=== PATIENT | male | born 1955 | race Caucasian/White ===

== ENCOUNTER 2017-03-14 07:22 | Day surgery (SDC) | payer BC ==
[2017-03-12 14:19] LABS: HEMATOCRIT 41.4 % (40.0-51.0); HEMOGLOBIN 14.4 g/dL (13.6-17.8)
--- NOTE | ~2017-03-14 | OP ---
Record Of Operation [facility] [address] [place]. 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 POSTOPERATIVE DIAGNOSIS: Right base of tongue lesion with metastatic neck disease. SURGEON: Bianca Leal M.D. ANESTHESIA: General endotracheal anesthesia was utilized. FINDINGS: A 1.5 to 2 cm ulcerative and exophytic lesion in the right tongue base leading to the inferior portion the right tonsil fossa. ESTIMATED BLOOD LOSS: 5 mL. COMPLICATIONS: No complications. INDICATIONS FOR PROCEDURE: This is a 61-year-old gentleman was seen in my clinic for right level 2 cystic neck mass. Fine-needle aspiration was performed in the clinic showing metastatic squamous cell carcinoma, p16 positive. He has indications for direct laryngoscopy for identification of primary site thought to be either in tonsillar fossa at the base of tongue, but definitely in the oropharynx due to the p16 nature. He was described the risks and benefits of the procedure including blood loss, infection, risk of anesthesia, pain and bleeding postoperatively, and the lack of ability to find his primary site. He voiced understanding, signed the consent. The consent was placed on the chart at the time of the operation. DESCRIPTION OF PROCEDURE: The patient was wheeled to the OR suite, placed on the OR table in supine position. He was intubated and placed under general endotracheal anesthesia using a 6.5 regular endotracheal tube. The table was turned 90 degrees, and he was prepped and draped in standard fashion for direct laryngoscopy. Maxillary tooth guard was placed. Head was placed in a donut, I would use the Dedo-Ossoff laryngoscope. Head drape was placed as well as this was to be done. As I said, using a Dedo-Ossoff laryngoscope, I placed the scope in his oral cavity and oropharynx, suctioned out any secretions and visualized that the larynx was normal appearing, pyriform sinuses appeared normal, and very quickly identified an exophytic right tongue base lesion adjacent from his vallecula really to his inferior portion of his tonsil fossa on the right hand side. I have taken multiple cup biopsies of this. There was some bleeding, this was controlled using epinephrine-soaked cottonoids, which was subsequently removed, and he was suctioned out. These were sent for permanent, this is very clearly a squamous cell carcinoma in this area. So, at this point, procedure was complete. I evaluated the pyriform sinuses, the larynx, hypopharynx, and the tongue base lesion noted. I palpated these areas as well firm area was in the right base of tongue. So, I suctioned the pharynx, removed the tooth guard and scope, turned him 90 degrees, returned to care of the Record Of Operation [address] [address] NAME: LUDIVINA LANGE : 51 STATUS : [facility] PAT#: [id number] AGE: 61 ADM/REG DATE : 03/14/17 MR#: [id number] REPORT SERV DATE: 03/14/17 DICTATED BY: BIANCA LEAL DATE: 03/14/17 REPORT STATUS : Draft TRANSCRIBED BY: LINDY DATE: 03/14/17 anesthesiologist, subsequently awoken, and stably transferred to the recovery area MARCELINO/LINDY Bianca Leal M.D. / [id number] CC: Isacc Archuleta M.D.
[~2017-03-14 07:22] MED LIST: COQ-1010 MG PO; GINGKO BILOBA PO; LIPITOR10 PO; MOBIC7.5 PO; MULTIVIT/MIN PO; P1 PO; PLAQ200B PO; PRILO PO; PRILOSEC OTC20 MG PO; SAW PALMETTO PO; SULFAZINE500 MG PO; ZOCOR40 PO
[2017-04-10] MEDS ORDERED: PREVEGEN (13:44)
== END 2017-03-14 12:48 | disposition home or self-care (01) ==
LOC: SDC 07:22
PROVIDERS: Otolaryngology
PROC: 0CBM8ZX Excision of Pharynx, Via Natural or Artificial Opening Endoscopic, Diagnostic (ICD-10-PCS; principal; 2017-03-14 09:00)
DX: C01 Malignant neoplasm of base of tongue (principal); F17.210 Nicotine dependence, cigarettes, uncomplicated; E78.5 Hyperlipidemia, unspecified; K21.9 Gastro-esophageal reflux disease without esophagitis; M06.9 Rheumatoid arthritis, unspecified; Z98.890 Other specified postprocedural states; Z79.899 Other long term (current) drug therapy; Z79.52 Long term (current) use of systemic steroids
CPT/HCPCS: 85014; 85018; 88305; 88342; 93005; J0690; J2250; J2405; J3010

== ENCOUNTER 2017-04-12 12:01 | Observation (INO) | payer BC ==
--- NOTE | ~2017-04-12 | EGD ---
EGD REPORT [facility] [address] [address] NAME: FRANC HEATH : 51 STATUS : [facility]#: [id number] AGE: 61 ADM/REG DATE : 04/12/17 MR#: [id number] REPORT SERV DATE: 04/12/17 DICTATED BY: BRIGIDA GILBERT DATE: 04/12/17 REPORT STATUS : Draft TRANSCRIBED BY: [facility] DATE: 04/12/17 Endoscopy Center Patient Name: Franc Heath Date of : 1955 Attending MD: BRIGIDA GILBERT MD Procedure Date No Time: 04/12/2017 Procedure: Upper GI endoscopy Indications: Dysphagia, Tongue cancer Referring MD: ARA JACOBO MD, Luis Hdez, Karsten Souza Medicines: See the Anesthesia note for documentation of the administered medications Complications: No immediate complications. Procedure: Pre-Anesthesia Assessment: - ASA Grade Assessment: II - A patient with mild systemic disease. After obtaining informed consent, the endoscope was passed under direct vision. Throughout the procedure, the patient's blood pressure, pulse, and oxygen saturations were monitored continuously. The GIF [id number] was introduced through the mouth, and advanced to the second part of duodenum. The upper GI endoscopy was accomplished without difficulty. The patient tolerated the procedure well. Findings: Diffuse erythematous mucosa was found in the duodenal bulb. A small hiatus hernia was present. There were esophageal mucosal changes suspicious for short-segment Pagan's esophagus present in the lower third of the esophagus. The maximum longitudinal extent of these mucosal changes was 1 cm in length. The entire examined stomach was normal. The patient was placed in the supine position for PEG placement. The stomach was insufflated to appose gastric and abdominal coffey. A site was located in the body of the stomach with excellent transillumination for placement. The abdominal wall was marked and prepped in a sterile manner. The area was anesthetized with 0.5% lidocaine. The trocar needle was introduced through the abdominal wall and into the stomach under direct endoscopic view. A snare was introduced through the endoscope and opened in the gastric lumen. The guide wire was passed through the trocar and into the open snare. The snare was closed around the guide wire. The endoscope and snare were removed, pulling the wire out through the mouth. A skin incision was made at the site of needle insertion. The externally removable 24 Fr EndoVive Safety gastrostomy tube was lubricated. The G-tube was tied to the guide wire and pulled through the mouth and into EGD REPORT [address] [place]. [address] NAME: FRANC HEATH : 51 STATUS : [facility]#: [id number] AGE: 61 ADM/REG DATE : 04/12/17 MR#: [id number] REPORT SERV DATE: 04/12/17 DICTATED BY: BRIGIDA GILBERT DATE: 04/12/17 REPORT STATUS : Draft TRANSCRIBED BY: [facility] DATE: 04/12/17 the stomach. The trocar needle was removed, and the gastrostomy tube was pulled out from the stomach through the skin. The external bumper was attached to the gastrostomy tube, and the tube was cut to remove the guide wire. The final position of the gastrostomy tube was confirmed by relook endoscopy, and skin marking noted to be 3.5 cm at the external bumper. The final tension and compression of the abdominal wall by the PEG tube and external bumper were checked and revealed that the bumper was moderately tight and mildly deforming the skin. The feeding tube was capped, and the tube site cleaned and dressed. Impression: - Erythematous duodenopathy. - Hiatus hernia. - Esophageal mucosal changes suspicious for short-segment Pagan's esophagus. - Normal stomach. - An externally removable PEG placement was successfully completed. Recommendation: - Admit for 23 hr observation Procedure Code(s): --- Professional --- 90516, Esophagogastroduodenoscopy, flexible, transoral; with directed placement of percutaneous gastrostomy tube Diagnosis Code(s): --- Professional --- K31.89, Other diseases of stomach and duodenum K44.9, Diaphragmatic hernia without obstruction or gangrene K22.9, Disease of esophagus, unspecified R13.10, Dysphagia, unspecified CPT copyright 2013 [employer]. All rights reserved. The codes documented in this report are preliminary and upon metal trim erector review may be revised to meet current compliance requirements. Brigida Gilbert MD BRIGIDA GILBERT MD 04/12/2017 2:34 PM This report has been signed electronically. Number of Addenda: 0 Note Initiated On: 04/12/2017 1:51 PM Scope Withdrawal Time 0 hours 0 minutes 0 seconds
[~2017-04-12 12:01] MED LIST changes: +PREVEGEN
[2017-04-12 12:17] LABS: BASOPHILS 0.8 %; BASOPHILS ABSOLUTE 0.08 10/3/uL (0.0-0.16); EOSINOPHILS 2.8 %; EOSINOPHILS ABSOLUTE 0.29 10/3/uL (0.0-0.53); HEMOGLOBIN 13.7 g/dL (13.6-17.8); IMMATURE GRANULOCYTES 0.9 %; IMMATURE GRANULOCYTES ABSOLUTE 0.09 10/3/uL (0.0-0.11); LYMPHOCYTES 17.7 %; LYMPHOCYTES ABSOLUTE 1.86 10/3/uL (0.67-4.30); MEAN CORPUSCULAR HEMOGLOB 31.5 pg (26.0-34.0); MEAN PLATELET VOLUME 8.9 fL (9.2-13.0); MONOCYTES 8.2 %; MONOCYTES ABSOLUTE 0.86 10/3/uL (0.21-1.20); NEUTROPHILS 69.6 %; PLATELET COUNT 270 10/3/uL (150-400); RBC DISTRIBUTION WIDTH 13.2 % (12.0-16.0); RED CELL COUNT 4.35 10/6/uL (4.7-6.1); WHITE BLOOD CELLS 10.5 10/3/uL (4.5-10.5)
[2017-04-12 12:23] LABS: MANUAL DIFF NO %; MEAN CORPUS HGB CONC 34.3 g/dL (32.0-36.0)
[2017-04-12 12:24] LABS: INTERNATIONAL NORMAL RATI 1.1 UNITS (-); PROTIME (NOT ORD) 14.3 SEC (12.0-14.5)
[2017-04-12 12:31] LABS: CALCIUM, SERUM 9.5 MG/DL (8.5-10.4); CHLORIDE, SERUM 108 MMOL/L (96-112); CO2 (CARBON DIOXIDE) 31 MMOL/L (24-34); CREATININE 0.93 MG/DL (0.70-1.30); GFR AFRICAN AMERICAN 101 ML/MIN (>=60); GFR NON AFRICAN AMERICAN 87 ML/MIN (>=60); GLUCOSE, SERUM 91 MG/DL (60-99); POTASSIUM, SERUM 4.6 MMOL/L (3.5-5.3); SODIUM, SERUM 143 MMOL/L (135-148)
[2017-04-12 12:33] LABS: BUN (BLOOD UREA NITROGEN) 18 MG/DL (6-23)
[2017-04-13 04:00] LABS: BASOPHILS 0.1 %; BASOPHILS ABSOLUTE 0.02 10/3/uL (0.0-0.16); EOSINOPHILS 0.4 %; EOSINOPHILS ABSOLUTE 0.06 10/3/uL (0.0-0.53); HEMATOCRIT 38.7 % (40.0-51.0); HEMOGLOBIN 13.5 g/dL (13.6-17.8); IMMATURE GRANULOCYTES 0.3 %; IMMATURE GRANULOCYTES ABSOLUTE 0.04 10/3/uL (0.0-0.11); LYMPHOCYTES ABSOLUTE 1.08 10/3/uL (0.67-4.30); MANUAL DIFF NO %; MEAN CORPUS HGB CONC 34.9 g/dL (32.0-36.0); MEAN CORPUSCULAR HEMOGLOB 31.8 pg (26.0-34.0); MEAN CORPUSCULAR VOLUME 91.3 fL (80-100); MONOCYTES 6.5 %; MONOCYTES ABSOLUTE 0.88 10/3/uL (0.21-1.20); NEUTROPHILS 84.7 %; PLATELET COUNT 257 10/3/uL (150-400); RBC DISTRIBUTION WIDTH 12.8 % (12.0-16.0); RED CELL COUNT 4.24 10/6/uL (4.7-6.1); WHITE BLOOD CELLS 13.6 10/3/uL (4.5-10.5)
[2017-04-13 04:12] LABS: CALCIUM, SERUM 8.9 MG/DL (8.5-10.4); CHLORIDE, SERUM 103 MMOL/L (96-112); CO2 (CARBON DIOXIDE) 32 MMOL/L (24-34); CREATININE 0.91 MG/DL (0.70-1.30); GFR AFRICAN AMERICAN 104 ML/MIN (>=60); GFR NON AFRICAN AMERICAN 89 ML/MIN (>=60); GLUCOSE, SERUM 109 MG/DL (60-99); POTASSIUM, SERUM 4.4 MMOL/L (3.5-5.3); SODIUM, SERUM 140 MMOL/L (135-148)
[2017-04-13 04:15] LABS: BUN (BLOOD UREA NITROGEN) 13 MG/DL (6-23)
== END 2017-04-13 12:21 | disposition home or self-care (01) ==
LOC: DMU 12:01 → CDU1 14:54 → CDU2 15:21
PROVIDERS: Internal Medicine Gastroenterology
PROC: 0DH63UZ Insertion of Feeding Device into Stomach, Percutaneous Approach (ICD-10-PCS; principal; 2017-04-12 13:30)
DX: C02.9 Malignant neoplasm of tongue, unspecified (principal); K44.9 Diaphragmatic hernia without obstruction or gangrene; K22.9 Disease of esophagus, unspecified; K31.89 Other diseases of stomach and duodenum; K21.9 Gastro-esophageal reflux disease without esophagitis; M06.9 Rheumatoid arthritis, unspecified; Z90.89 Acquired absence of other organs
CPT/HCPCS: 74150; 80048; 85025; 85610; 96374; 96375; A9270-GY; G0378; J0690; J2405